=== PATIENT | female | born 1950 | race Caucasian/White ===

== ENCOUNTER 2018-07-05 15:12 | Emergency (ER) | payer OTHER ==
--- OUTSIDE RECORDS SUMMARY | 2018-07-05 15:17 | XMS REPORT ---
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
--- OUTSIDE RECORDS SUMMARY | 2018-07-05 15:17 | XMS REPORT ---
:1950 Author Organization eClinicalWorks Care Team Providers Name Role Phone Judit Russell Provider Role Unavailable Allergies, Adverse Reactions, Alerts Substance Reaction Event Type PCN anaphylaxis Drug Allergy Morphine Sulfate cardiac palpitations Drug Allergy Codeine Phosphate rash Drug Allergy Aspirin nausea and vomiting Drug Allergy Problems Problem Type Condition Code Onset Dates Condition Status Problem Acute UTI N39.0 Active Problem Depression F32.9 Active Problem Hypokalemia E87.6 Active Problem Psychophysiological insomnia F51.04 Active Problem Other osteoporosis without current M81.8 Active pathological fracture Problem Primary insomnia F51.01 Active Problem Vitamin D deficiency E55.9 Active Problem Peripheral neuropathy G62.9 Active Problem Essential hypertension I10 Active Problem Allergic rhinitis J30.9 Active Assessment Primary insomnia F51.01 Active Assessment Depression F32.9 Active Assessment Hordeolum externum of right upper H00.011 Active eyelid Problem 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 Active Assessment Nicotine dependence F17.200 Active Problem Nicotine dependence F17.200 Active Assessment Essential hypertension I10 Active Problem Benign hypertension I10 Active Medications Medication Code Code Instructions Start End Status Dosage System Date Date ProAir HFA [facility] [id number] 108 (90 Base) Jan 13, Active 2 puffs as MCG/ACT 2018 needed Inhalation every 6 hrs Vitamin D3 [facility] 83328477709 2000 UNIT Active 1 capsule Orally Once a day Potassium [facility] 51535289540 20 MEQ Orally Active 1 tablet Chloride ER Once a day with food Trazodone HCl ND 70334312849 50 MG Orally May 03, Active 1 tablet Once a day 2018 at bedtime as needed Lisinopril ND 25276805970 20 MG Orally Apr 05, Active 1 tablet Once a day 2018 Lipitor ND 29721493855 20 MG Orally Active 1 tablet Once a day at bedtime Fluticasone ND 30404605285 50 MCG/ACT Active 1 spray in Propionate Nasally Once a each day nostril Fosamax [facility] [address]-42 35mg Orally Active 1 tablet once a week Zoloft [facility] 19368351275 50 MG Orally Apr 05, Active 1 tablet Once a day 2017 Gabapentin [facility] 99182614414 600 MG Orally Active 1 capsule Four times a day Results No Known Results Summary Purpose eClinicalWorks Submission
--- OUTSIDE RECORDS SUMMARY | 2018-07-05 15:17 | XMS REPORT ---
:1950 Author Organization eClinicalWorks Care Team Providers Name Role Phone YvonneJudit Provider Role Unavailable Allergies No Known Allergies Problems Problem Type Condition Code Onset Dates Condition Status Problem Nicotine dependence F17.200 Active Problem 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 Active Problem Vitamin D deficiency E55.9 Active Problem Peripheral neuropathy G62.9 Active Problem Allergic rhinitis J30.9 Active Problem Acute UTI N39.0 Active Problem Benign hypertension I10 Active Problem Depression F32.9 Active Problem Hypokalemia E87.6 Active Medications No Known Medications Results No Known Results Summary Purpose eClinicalWorks Submission
--- OUTSIDE RECORDS SUMMARY | 2018-07-05 15:17 | XMS REPORT ---
:1950 Author Organization eClinicalWorks Care Team Providers Name Role Phone Judit Russell Provider Role Unavailable Allergies No Known Allergies Problems Problem Type Condition Code Onset Dates Condition Status Assessment Decreased pulses in feet R09.89 Active Problem Nicotine dependence F17.200 Active Problem Alcoholism [...]
--- OUTSIDE RECORDS SUMMARY | 2018-07-05 15:17 | XMS REPORT ---
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 Active Problem Allergic rhinitis J30.9 Active Problem Psychophysiological insomnia F51.04 Active Problem Depression F32.9 Active Problem Hypokalemia E87.6 Active Problem Vitamin D deficiency E55.9 Active Problem Peripheral neuropathy G62.9 Active Assessment Psychophysiological insomnia F51.04 Active Assessment Viral upper respiratory illness J06.9 Active Assessment Bronchitis J40 Active Assessment Nicotine dependence F17.200 Active Medications Medication Code Code Instructions Start End Status Dosage System Date Date ProAir HFA [facility] [id number] 108 (90 Base) Jan 13, Active 2 puffs as MCG/ACT 2018 needed Inhalation every 6 hrs Fluticasone ND 92889584901 50 MCG/ACT Jan 13, Active 1 spray in Propionate Nasally Once a 2018 each day nostril GNP [facility] 26836613391 5-120 MG Orally Jan 13Jan Active 1 tablet Loratadine-D every 12 hrs 2017 07, as needed 12HR 2018 Lipitor ND 72044368669 20 MG Orally October 29, Active 1 tablet Once a day at 2018 bedtime Fosamax [facility] [address]-20 35mg Orally Active 1 tablet once a week Vitamin D3 ND 52770948478 2000 UNIT Active 1 capsule Orally Once a day Zoloft ND 91265628357 25 MG Orally Active 1 tablet Once a day Gabapentin ND 70780462038 600 MG Orally Active 1 capsule Three times a day Fosamax [facility] 08351469328 70 MG Orally October 12, Apr 10, Active 1 tablet once a week 2017 2018 Potassium ND 56941085185 20 MEQ Orally Active 1 tablet Chloride ER Once a day with food Results No Known Results Summary Purpose eClinicalWorks Submission
--- OUTSIDE RECORDS SUMMARY | 2018-07-05 15:17 | XMS REPORT ---
:1950 Author Organization eClinicalWorks Care Team Providers Name Role Phone Judit Russell Provider Role Unavailable Allergies, Adverse Reactions, Alerts Substance Reaction Event Type PCN anaphylaxis Drug Allergy Morphine Sulfate cardiac palpitations Drug Allergy Codeine Phosphate rash Drug Allergy Aspirin nausea and vomiting Drug Allergy Problems Problem Type Condition Code Onset Dates Condition Status Assessment Depression F32.9 Active Problem Nicotine dependence F17.200 Active Problem 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 Active Problem Vitamin D deficiency E55.9 Active Problem Peripheral neuropathy G62.9 Active Problem Allergic rhinitis J30.9 Active Problem Acute UTI N39.0 Active Problem Benign hypertension I10 Active Problem Depression F32.9 Active Problem Hypokalemia E87.6 Active Assessment 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 Active Assessment Vitamin D deficiency E55.9 Active Assessment Peripheral neuropathy G62.9 Active Assessment Decreased pulses in feet R09.89 Active Assessment Nicotine dependence F17.200 Active Medications Medication Code Code Instructions Start End Status Dosage System Date Date Potassium [facility] 79214890082 20 MEQ Orally Active 1 tablet Chloride ER Once a day with food Fosamax [facility] [address]-42 35mg Orally Active 1 tablet once a week Zoloft ND 10752619842 25 MG Orally Active 1 tablet Once a day Vitamin D3 [facility] 44371603313 2000 UNIT Active 1 capsule Orally Once a day Tramadol HCl ND 40312511831 50 MG Orally Active 1 tablet BID prn pain as needed Fosamax [facility] 31605604078 70 MG Orally October 12, Apr 10, Active 1 tablet once a week 2017 2017 Gabapentin ND 47236938550 600 MG Orally Active 1 capsule Three times a day Results No Known Results Summary Purpose eClinicalWorks Submission
--- NOTE | 2018-07-05 16:53 | RAD REPORT ---
EXAM DESCRIPTION: RAD - Hip Right 2 View - 07/05/2018 4:31 pm CLINICAL HISTORY: Hip pain following slip and fall COMPARISON: None. FINDINGS: AP and frog-leg views of the right hip were obtained. There is no fracture or dislocation . No AVN or focal femoral head abnormality. Hip joint degenerative changes are minimal. No periartic ular mass, hematoma or other soft tissue abnormality. IMPRESSION: Negative right hip examination for acute findings.
--- NOTE | 2018-07-05 16:53 | RAD REPORT ---
EXAM DESCRIPTION: RAD - Pelvis - 07/05/2018 4:31 pm CLINICAL HISTORY: Slip and fall, pelvis and right hip pain COMPARISON: August 2016 TECHNIQUE: AP imaging of the pelvis was obtained. FINDINGS: Lower lumbar degenerative changes present only partially imaged. No clear interval change. Minimal SI joint degenerative change present. No fracture of the bony pelvis seen. No fracture or di slocation of either proximal femur. Hip joint degenerative changes are present stable from 2017. IMPRESSION: No fracture or acute pelvis finding.
--- NOTE | 2018-07-05 16:54 | RAD REPORT ---
EXAM DESCRIPTION: RAD - Femur Right - 07/05/2018 4:32 pm CLINICAL HISTORY: Slip and fall, right hip and leg pain COMPARISON: None. FINDINGS: No fracture, dislocation or periosteal reaction noted. No acute or suspicious bony finding . Prominent meniscal degenerative changes are present. No large joint effusion seen. No air or foreig n body in the soft tissues. IMPRESSION: Knee joint degenerative changes are present. No fracture or acute right femur finding.
--- NOTE | 2018-07-05 16:56 | RAD REPORT ---
EXAM DESCRIPTION: RAD - Foot Left 3 View - 07/05/2018 4:31 pm CLINICAL HISTORY: Slip and fall, left second toe pain COMPARISON: November 2015 FINDINGS: An oblique fracture is present through the distal aspect of the second proximal phalanx. T his does not extend to the articular surface. No significant distraction or angulation deformity. No other fracture changes are identifiable. Moderate degenerative changes are present at the medial c uneiform first metatarsal articulation. This is not substantially different from comparison. Tibiotal ar joint space degenerative change present only partially imaged on a foot examination. No air or foreign body in the soft tissues. IMPRESSION: Oblique fracture through the second proximal phalanx without significant distraction or angulation deformity. Foot and ankle degenerative changes are present not substantially different from comparison.
--- NOTE | 2018-07-05 17:48 | ER ---
Nurse's Notes [facility] Name: Nusrat Green Age: 68 yrs Sex: Female : 1950 Arrival Date: 07/05/2018 Time: 15:17 Bed 9 Private MD: DESI LOZOYA Diagnosis: Contusion of right hip;Nondisplaced fracture of proximal phalanx of left lesser toe(s) Presentation: 07/05 15:19 Presenting complaint: Right hip and left second toe pain after slipping on steps 3 days hb ago. Transition of care: patient was not received from another setting of care. Onset of symptoms was July 02, 2018. Risk Assessment: Do you want to hurt yourself or someone else? Patient reports no desire to harm self or others. Initial Sepsis Screen: Does the patient meet any 2 criteria? No. Patient's initial sepsis screen is negative. Does the patient have a suspected source of infection? No. Patient's initial sepsis screen is negative. Care prior to arrival: None. 15:19 Method Of Arrival: Ambulatory hb 15:19 Acuity: ROSALIE 4 hb Historical: - Allergies: 15:22 Aspirin; hb 15:22 Morphine; hb 15:22 PENICILLINS; hb 15:22 Codeine; hb - Home Meds: 15:22 gabapentin Oral [Active]; Zoloft Oral [Active]; hb - PMHx: 15:22 Hypertension; hb - Immunization history:: Adult Immunizations up to date. - Social history:: Smoking status: Patient uses tobacco products, smokes one-half pack cigarettes per day. - Ebola Screening: : No symptoms or risks identified at this time. - Family history:: not pertinent. - Hospitalizations: : No recent hospitalization is reported. Screenin:36 Abuse screen: Denies threats or abuse. Denies injuries from another. Nutritional aj screening: No deficits noted. Tuberculosis screening: No symptoms or risk factors identified. Fall Risk None identified. Assessment: 15:36 General: Appears in no apparent distress. comfortable, Behavior is calm, cooperative, aj appropriate for age. Pain: Complains of pain in right hip and left second toe. Neuro: Level of Consciousness is awake, alert, obeys commands, Oriented to person, place, time, situation, Appropriate for age. Respiratory: Airway is patent Respiratory effort is even, unlabored, Respiratory pattern is regular, symmetrical. Derm: Skin is intact, is healthy with good turgor, Skin is pink, warm \T\ dry. normal. Musculoskeletal: Circulation, motion, and sensation intact. Range of motion: intact in all extremities, Reports pain in right hip and left second toe. 16:00 Reassessment: Patient stated that she was uncomfortable in stretcher. Provided with recliner for comfort. 18:00 Reassessment: Patient appears in no apparent distress at this time. No changes from previously documented assessment. Patient and/or family updated on plan of care and expected duration. Pain level reassessed. Patient is alert, oriented x 3, equal unlabored respirations, skin warm/dry/pink. Vital Signs: 15:20 BP 163 / 82; Pulse 84; Resp 18; Temp 98.5; Pulse Ox 100% on R/A; Pain 8/10; hb ED Course: 15:17 Patient arrived in ED. sb2 15:17 DESI LOZOYA is Private Physician. sb2 15:20 Triage completed. hb 15:22 Arm band placed on. hb 15:24 Faith Lopez, RN is Primary Nurse. aj 15:30 Anderson Pena MD is Attending Physician. rn 15:36 Patient has correct armband on for positive identification. aj 16:32 XRAY Foot LEFT 3 View In Process Unspecified. EDMS 16:32 XRAY Hip RIGHT 2 view In Process Unspecified. EDMS 16:32 XRAY Pelvis In Process Unspecified. EDMS 16:32 XRAY Femur RIGHT In Process Unspecified. EDMS 18:00 No provider procedures requiring assistance completed. Patient did not have IV access aj during this emergency room visit. Ortho shoe applied to left foot. Administered Medications: No medications were administered Outcome: 17:47 Discharge ordered by . rn 18:00 Discharged to home ambulatory. aj 18:00 Condition: good 18:00 Discharge instructions given to patient, Instructed on discharge instructions, follow up and referral plans. Demonstrated understanding of instructions, follow-up care. 18:02 Patient left the ED. oleg Signatures: Dispatcher [employer] EDFaith Rg, Anderson Chappell RN, MD MD rn Baxter, Heather, RN RN Cherelle Crisostomo sb2
--- NOTE | 2018-07-05 17:48 | EDPHYS ---
Physician Documentation [facility] Name: Nusrat Green Age: 68 yrs Sex: Female : 1950 Arrival Date: 07/05/2018 Time: 15:17 Bed 9 Private MD: DESI LOZOYA ED Physician Anderson Pena HPI: 07/05 15:36 This 68 yrs old Female presents to ER via Ambulatory with complaints of Fall rn Injury, Hip Injury, Toe Injury. 15:36 Details of fall: The patient fell from a height, down approximately 2 stairs. Onset: rn The symptoms/episode began/occurred 3 day(s) ago. Associated injuries: The patient sustained right hip, left 2nd toe. Severity of symptoms: At their worst the symptoms were mild, in the emergency department the symptoms are unchanged. The patient has not experienced similar symptoms in the past. The patient has not recently seen a physician. Reports fell 3 days ago, from 2nd step out of 3 into RV floor, no LOC, reports ambulatory but right hip and left 2nd toe hurt.. Historical: - Allergies: 15:22 Aspirin; hb 15:22 Morphine; hb 15:22 PENICILLINS; hb 15:22 Codeine; hb - Home Meds: 15:22 gabapentin Oral [Active]; Zoloft Oral [Active]; hb - PMHx: 15:22 Hypertension; hb - Immunization history:: Adult Immunizations up to date. - Social history:: Smoking status: Patient uses tobacco products, smokes one-half pack cigarettes per day. - Ebola Screening: : No symptoms or risks identified at this time. - Family history:: not pertinent. - Hospitalizations: : No recent hospitalization is reported. ROS: 15:36 Constitutional: Negative for fever, chills, and weight loss, Eyes: Negative for injury, rn pain, redness, and discharge, Neck: Negative for injury, pain, and swelling, Cardiovascular: Negative for chest pain, palpitations, and edema, Respiratory: Negative for shortness of breath, cough, wheezing, and pleuritic chest pain, Abdomen/GI: Negative for abdominal pain, nausea, vomiting, diarrhea, and constipation, MS/Extremity: + right hip and left 2nd toe injury Skin: Negative for injury, rash, and discoloration, Neuro: Negative for headache, weakness, numbness, tingling, and seizure. Exam: 15:36 Constitutional: This is a well developed, well nourished patient who is awake, alert, rn and in no acute distress. Head/Face: Normocephalic, atraumatic. Abdomen/GI: soft, non-tender Skin: Warm, dry with normal turgor. Normal color with no rashes, no lesions, and no evidence of cellulitis. MS/ Extremity: Pulses equal, no cyanosis. + painful ROM right hip and left 2nd toe with mild swelling, no deformity. Neuro: Awake and alert, GCS 15, oriented to person, place, time, and situation. Cranial nerves II-XII grossly intact. Motor strength 5/5 in all extremities. Sensory grossly intact. Vital Signs: 15:20 BP 163 / 82; Pulse 84; Resp 18; Temp 98.5; Pulse Ox 100% on R/A; Pain 8/10; hb MDM: 15:30 Patient medically screened. rn 16:58 Differential diagnosis: contusion, fracture, sprain, strain. Data reviewed: vital rn signs, nurses notes, lab test result(s), radiologic studies, plain films, and as a result, I will discharge patient. Counseling: I had a detailed discussion with the patient and/or guardian regarding: the historical points, exam findings, and any diagnostic results supporting the discharge/admit diagnosis, radiology results, the need for outpatient follow up, to return to the emergency department if symptoms worsen or persist or if there are any questions or concerns that arise at home. Special discussion: I discussed with the patient/guardian in detail that at this point there is no indication for admission to the hospital. It is understood, however, that if the symptoms persist or worsen the patient needs to return immediately for re-evaluation. 07/05 15:35 Order name: XRAY Foot LEFT 3 View; Complete Time: 16:58 rn 07/05 15:35 Order name: XRAY Hip RIGHT 2 view; Complete Time: 16:58 rn 07/05 15:35 Order name: XRAY Pelvis; Complete Time: 16:58 rn 07/05 15:35 Order name: XRAY Femur RIGHT; Complete Time: 16:58 rn Administered Medications: No medications were administered Disposition: 07/05/18 17:47 Discharged to Home. Impression: Contusion of right hip, Nondisplaced fracture of proximal phalanx of left lesser toe(s). - Condition is Stable. - Discharge Instructions: Contusion, Toe Fracture. - Prescriptions for Tramadol 50 mg Oral Tablet - take 1 tablet by ORAL route every 8 hours as needed; 20 tablet. - Medication Reconciliation Form, Thank You Letter, Antibiotic Education, Prescription Opioid Use form. - Follow up: Private Physician; When: As needed; Reason: Recheck today's complaints, Re-evaluation by your physician. - Problem is new. - Symptoms have improved. Signatures: Dispatcher [employer] EDFaith Rg RN RN aj Nieto, Roman, MD MD rn Baxter, Heather, RN RN Corrections: (The following items were deleted from the chart) 18:02 17:47 07/05/2018 17:47 Discharged to Home. Impression: Contusion of right hip; aj Nondisplaced fracture of proximal phalanx of left lesser toe(s). Condition is Stable. Forms are Medication Reconciliation Form, Thank You Letter, Antibiotic Education, Prescription Opioid Use. Follow up: Private Physician; When: As needed; Reason: Recheck today's complaints, Re-evaluation by your physician. Problem is new. Symptoms have improved. rn
== END 2018-07-05 18:02 | disposition home or self-care (01) ==
LOC: ER 15:12
DX: S70.01XA Contusion of right hip, initial encounter (principal); S92.512A Displaced fracture of proximal phalanx of left lesser toe(s), initial encounter for closed fracture; W10.9XXA Fall (on) (from) unspecified stairs and steps, initial encounter; I10 Essential (primary) hypertension; Z88.6 Allergy status to analgesic agent; Z88.5 Allergy status to narcotic agent; Z88.0 Allergy status to penicillin
CPT/HCPCS: 72170; 99283

== ENCOUNTER 2018-12-07 11:40 | Emergency (ER) | payer OTHER ==
--- OUTSIDE RECORDS SUMMARY | 2018-12-07 11:47 | XMS REPORT ---
[...] Status Dosage System Date Date ProAir HFA [facility] [id number] 108 (90 Base) Jan 13, Active 2 puffs as MCG/ACT 2018 needed Inhalation every 6 hrs Fluticasone ND 15756980382 50 MCG/ACT Jan 13, Active 1 spray in Propionate Nasally Once a 2018 each day nostril GNP [facility] 35949173518 5-120 MG Orally Jan 13Jan Active 1 tablet Loratadine-D every 12 hrs 2017 07, as needed 12HR 2018 Lipitor ND 43510777680 20 MG Orally October 29, Active 1 tablet Once a day at 2018 bedtime Fosamax [facility] [address]-78 35mg Orally Active 1 tablet once a week Vitamin D3 ND 93366361372 2000 UNIT Active 1 capsule Orally Once a day Zoloft ND 39055003868 25 MG Orally Active 1 tablet Once a day Gabapentin ND 85034465097 600 MG Orally Active 1 capsule Three times a day Fosamax [facility] 07658171608 70 MG Orally October 12, Apr 10, Active 1 tablet once a week 2017 2018 Potassium ND 81447228193 20 MEQ Orally Active 1 tablet Chloride ER Once a day with food Results No Known Results Summary Purpose eClinicalWorks Submission
--- OUTSIDE RECORDS SUMMARY | 2018-12-07 11:47 | XMS REPORT ---
[...] Status Dosage System Date Date ProAir HFA [facility] [id number] 108 (90 Base) Jan 13, Active 2 puffs as MCG/ACT 2018 needed Inhalation every 6 hrs Vitamin D3 [facility] 35641927491 2000 UNIT Active 1 capsule Orally Once a day Potassium [facility] 80738428242 20 MEQ Orally Active 1 tablet Chloride ER Once a day with food Trazodone HCl ND 27775235591 50 MG Orally May 03, Active 1 tablet Once a day 2018 at bedtime as needed Lisinopril ND 56876666696 20 MG Orally Apr 05, Active 1 tablet Once a day 2018 Lipitor ND 97741893987 20 MG Orally Active 1 tablet Once a day at bedtime Fluticasone ND 31382630847 50 MCG/ACT Active 1 spray in Propionate Nasally Once a each day nostril Fosamax [facility] [address]-14 35mg Orally Active 1 tablet once a week Zoloft [facility] 72311207745 50 MG Orally Apr 05, Active 1 tablet Once a day 2017 Gabapentin [facility] 97485056804 600 MG Orally Active 1 capsule Four times a day Results No Known Results Summary Purpose eClinicalWorks Submission
--- OUTSIDE RECORDS SUMMARY | 2018-12-07 11:48 | XMS REPORT ---
:1950 Author Organization eClinicalWorks Care Team Providers Name Role Phone Venecia Russelly Provider Role Unavailable Allergies, Adverse Reactions, Alerts Substance Reaction Event Type PCN anaphylaxis Drug Allergy Morphine Sulfate cardiac palpitations Drug Allergy Codeine Phosphate rash Drug Allergy Aspirin nausea and vomiting Drug Allergy Problems Problem Type Condition Code Onset Dates Condition Status Problem Vitamin D deficiency E55.9 Active Problem Allergic rhinitis J30.9 Active Problem Nicotine dependence F17.200 Active Problem Closed nondisplaced fracture of S92.535A Active distal phalanx of lesser toe of left foot, initial encounter Assessment Nicotine dependence F17.200 Active Problem Anxiety F41.9 Active Problem Seasonal allergic rhinitis due to J30.1 Active pollen Problem Other osteoporosis without current M81.8 Active pathological fracture Problem Essential hypertension I10 Active Problem Primary insomnia F51.01 Active Problem Psychophysiological insomnia F51.04 Active Assessment Primary insomnia F51.01 Active Assessment Seasonal allergic rhinitis due to J30.1 Active pollen Assessment Closed nondisplaced fracture of S92.535A Active distal phalanx of lesser toe of left foot, initial encounter Problem Acute UTI N39.0 Active Problem Hypokalemia E87.6 Active Problem 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 Active Problem Depression F32.9 Active Problem Benign hypertension I10 Active Problem Peripheral neuropathy G62.9 Active Medications Medication Code Code Instructions Start End Status Dosage System Date Date Zoloft [facility] 40020102272 50 MG Orally Apr 05, Active 1 tablet Once a day 2017 Fosamax [facility] [address]-17 35mg Orally Active 1 tablet once a week Trazodone HCl ND 22561712774 100 MG Orally Jun 03, Active 1 tablet Once a day 2019 at bedtime Lisinopril ND 16509413761 20 MG Orally Apr 05, Active 1 tablet Twice a day 2018 Vitamin D3 [facility] 49031023308 2000 UNIT Active 1 capsule Orally Once a day Potassium [facility] 48494866903 20 MEQ Orally Active 1 tablet Chloride ER Once a day with food ProAir HFA [facility] 37799689266 108 (90 Base) Jan 13, Active 2 puffs as MCG/ACT 2017 needed Inhalation every 6 hrs BusPIRone HCl [facility] 96821468858 5 MG Orally Jun 03, Active 1 tablet Twice a day 2018 Gabapentin [facility] 98528240002 600 MG Orally Active 1 capsule Four times a day Trazodone HCl [facility] 07181288136 50 MG Orally Active 1 tablet Once a day at bedtime as needed Lipitor [facility] 36604205241 20 MG Orally Active 1 tablet Once a day at bedtime Fluticasone [facility] 66688478618 50 MCG/ACT Active 1 spray in Propionate Nasally Once a each day nostril Results No Known Results Summary Purpose eClinicalWorks Submission
--- OUTSIDE RECORDS SUMMARY | 2018-12-07 11:48 | XMS REPORT ---
[...] toe of left foot, initial encounter Problem Anxiety F41.9 Active Problem Seasonal allergic rhinitis due to J30.1 Active pollen Problem Other osteoporosis without current M81.8 Active pathological fracture Problem Essential hypertension I10 Active Problem Primary insomnia F51.01 Active Problem Psychophysiological insomnia F51.04 Active Problem Acute UTI N39.0 Active Problem Hypokalemia E87.6 Active Problem 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 Active Problem Depression F32.9 Active Problem Benign hypertension I10 Active Problem Peripheral neuropathy G62.9 Active Medications No Known Medications Results No Known Results Summary Purpose eClinicalWorks Submission
--- OUTSIDE RECORDS SUMMARY | 2018-12-07 11:48 | XMS REPORT ---
:1950 Author Organization eClinicalWorks Care Team Providers Name Role Phone Judit Russell Provider Role Unavailable Allergies, Adverse Reactions, Alerts Substance Reaction Event Type PCN anaphylaxis Drug Allergy Morphine Sulfate cardiac palpitations Drug Allergy Codeine Phosphate rash Drug Allergy Aspirin nausea and vomiting Drug Allergy Problems Problem Type Condition Code Onset Dates Condition Status Problem Depression F32.9 Active Problem Vitamin D deficiency E55.9 Active Problem Peripheral neuropathy G62.9 Active Problem Primary insomnia F51.01 Active Problem Psychophysiological insomnia F51.04 Active Problem Anxiety F41.9 Active Problem Allergic rhinitis J30.9 Active Problem Nicotine dependence F17.200 Active Problem Other osteoporosis without current M81.8 Active pathological fracture Problem Essential hypertension I10 Active Assessment Anxiety F41.9 Active Assessment Primary insomnia F51.01 Active Problem 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 Active Problem Benign hypertension I10 Active Assessment Benign hypertension I10 Active Problem Acute UTI N39.0 Active Problem Hypokalemia E87.6 Active Medications Medication Code Code Instructions Start End Status Dosage System Date Lipitor [facility] 64655096794 20 MG Orally Active 1 tablet Once a day at bedtime Gabapentin ND 40174799339 600 MG Orally Active 1 capsule Four times a day Zoloft ND 08247053462 50 MG Orally Apr 05, Active 1 tablet Once a day 2017 Fluticasone [facility] 87264135420 50 MCG/ACT Active 1 spray in Propionate Nasally Once a each day nostril Lisinopril ND 19067220319 20 MG Orally Apr 05, Active 1 tablet Twice a day 2017 BusPIRone HCl ND 35321953326 5 MG Orally Jun 03, Active 1 tablet Twice a day 2018 Vitamin D3 [facility] 08527482317 2000 UNIT Active 1 capsule Orally Once a day Potassium ND 62167749622 20 MEQ Orally Active 1 tablet Chloride ER Once a day with food Trazodone HCl [facility] 61686600308 50 MG Orally Active 1 tablet Once a day at bedtime as needed Fosamax [facility] [address]-20 35mg Orally Active 1 tablet once a week Trazodone HCl [facility] 13612449880 100 MG Orally Jun 03, Active 1 tablet Once a day 2019 at bedtime ProAir HFA [facility] 70702172173 108 (90 Base) Jan 13, Active 2 puffs as MCG/ACT 2017 needed Inhalation every 6 hrs Results No Known Results Summary Purpose eClinicalWorks Submission
--- OUTSIDE RECORDS SUMMARY | 2018-12-07 11:48 | XMS REPORT ---
:1950 Author Organization eClinicalWorks Care Team Providers Name Role Phone Judit Russell Provider Role Unavailable Allergies No Known Allergies Problems Problem Type Condition Code Onset Dates Condition Status Problem Vitamin D deficiency E55.9 Active Problem 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 Active Problem Nicotine dependence F17.200 Active Problem Pulmonary emphysema, unspecified J43.9 Active emphysema type Problem Seasonal allergic rhinitis due to J30.1 Active pollen Problem Benign hypertension I10 Active Problem Other osteoporosis without current M81.8 Active pathological fracture Problem Essential hypertension I10 Active Problem Anxiety F41.9 Active Problem Primary insomnia F51.01 Active Problem Hypoxia R09.02 Active Problem Hypokalemia E87.6 Active Problem Depression F32.9 Active Problem Low oxygen saturation R79.81 Active Problem Peripheral neuropathy G62.9 Active Medications No Known Medications Results No Known Results Summary Purpose [employer] Submission
--- OUTSIDE RECORDS SUMMARY | 2018-12-07 11:48 | XMS REPORT ---
[...] Peripheral neuropathy G62.9 Active Medications Medication Code System Code Instructions Start Date End Date Status Dosage Lisinopril [facility] 68337273911 20 MG Orally bid Active 1 tablet Results No Known Results Summary Purpose eClinicalWorks Submission
--- OUTSIDE RECORDS SUMMARY | 2018-12-07 11:48 | XMS REPORT ---
:1950 Author Organization eClinicalWorks Care Team Providers Name Role Phone Yvonne Judit Provider Role Unavailable Allergies, Adverse Reactions, Alerts Substance Reaction Event Type PCN anaphylaxis Drug Allergy Morphine Sulfate cardiac palpitations Drug Allergy Codeine Phosphate rash Drug Allergy Aspirin nausea and vomiting Drug Allergy Problems Problem Type Condition Code Onset Dates Condition Status Problem Nicotine dependence F17.200 Active Problem Essential hypertension I10 Active Problem 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 Active Problem Benign hypertension I10 Active Problem Pulmonary emphysema, unspecified J43.9 Active emphysema type Problem Age-related osteoporosis without M81.0 Active current pathological fracture Problem Primary insomnia F51.01 Active Problem Other osteoporosis without current M81.8 Active pathological fracture Problem Seasonal allergic rhinitis due to J30.1 Active pollen Problem Anxiety F41.9 Active Assessment Pulmonary emphysema, unspecified J43.9 Active emphysema type Problem Hypokalemia E87.6 Active Problem Depression F32.9 Active Problem Low oxygen saturation R79.81 Active Problem Peripheral neuropathy G62.9 Active Problem Hypoxia R09.02 Active Problem Vitamin D deficiency E55.9 Active Medications Medication Code Code Instructions Start End Status Dosage System Date Date Trazodone HCl [facility] 87837510851 100 MG Orally Active 1 tablet at Once a day bedtime Trazodone HCl [facility] 65545464090 50 MG Orally Active 1 tablet at Once a day bedtime as needed Oxygen NDC 0 n/s nasal Active continous concentrator cannula 3l, N/C continous Zoloft ND 89500924517 50 MG Orally Active 1 tablet Once a day Fluticasone ND 13351349574 50 MCG/ACT Active 1 spray in Propionate Nasally Once a each day nostril BusPIRone HCl ND 01590619506 5 MG Orally Jun 03, Active 1 tablet Twice a day 2018 Potassium ND 34551201771 20 MEQ Orally Active 1 tablet Chloride ER Once a day with food Gabapentin ND 30152606473 600 MG Active TAKE 1 CAPSULE BY MOUTH 4 TIMES A DAY Lisinopril ND 92020967790 20 MG Orally Active 1 tablet bid Lipitor [facility] 83434138508 20 MG Orally Active 1 tablet Once a day at bedtime Vitamin D3 [facility] 29235024408 2000 UNIT Active 1 capsule Orally Once a day ProAir HFA [facility] 83959147819 108 (90 Base) Jan 13, Active 2 puffs as MCG/ACT 2017 needed Inhalation every 6 hrs Fosamax [facility] [address]-30 35mg Orally Active 1 tablet once a week Results No Known Results Summary Purpose eClinicalWorks Submission
[2018-12-07] MEDS ORDERED: dexAMETHasone 10 MG/ML VIAL ONE (13:08)
[2018-12-07] MEDS ORDERED: FENTANYL CITR 100 MCG/2 ML ONE (13:09)
[2018-12-07] MEDS ORDERED: LEVALBUTEROL 0.63 MG/3 ML NEB ONE (13:09)
--- NOTE | 2018-12-07 14:01 | ER ---
Nurse's Notes [facility] Name: Nusrat Green Age: 68 yrs Sex: Female : 1950 Arrival Date: 12/07/2018 Time: 11:42 Bed 17 Private MD: Diagnosis: Sciatica, left side Presentation: 12/07 11:43 Presenting complaint: Patient states: joe been having this pain on my lower back and L hj shoulder, i was diagnosed with degenerative disc dse; denies fall;. Transition of care: patient was not received from another setting of care. Onset of symptoms was December 07, 2018. Risk Assessment: Do you want to hurt yourself or someone else? Patient reports no desire to harm self or others. Initial Sepsis Screen: Does the patient meet any 2 criteria? No. Patient's initial sepsis screen is negative. Does the patient have a suspected source of infection? No. Patient's initial sepsis screen is negative. Care prior to arrival: None. 11:43 Method Of Arrival: Ambulatory 11:43 Acuity: ROSALIE 4 hj Historical: - Allergies: 11:45 Aspirin; hj 11:45 Codeine; hj 11:45 Morphine; hj 11:45 PENICILLINS; hj 13:00 Ciprofloxacin; tw2 13:00 diazepam; tw2 - Home Meds: 13:00 gabapentin Oral [Active]; Zoloft Oral [Active]; tw2 - PMHx: 11:45 Hypertension; hj - PSHx: 11:45 None; hj - Immunization history:: Adult Immunizations. - Social history:: Smoking status: . - Ebola Screening: : Patient denies travel to an Ebola-affected area in the 21 days before illness onset. Screenin:11 Abuse screen: Denies threats or abuse. Nutritional screening: No deficits noted. tw2 Tuberculosis screening: No symptoms or risk factors identified. Fall Risk Secondary diagnosis (15 points) impaired mobility. Assessment: 13:31 Reassessment: Patient ambulated with steady gait around pod 2, required no assistance. aj General: Appears in no apparent distress. comfortable, Behavior is calm, cooperative, appropriate for age. Pain: Complains of pain in left lower back, left gluteus mariluz and left gluteal fold. Neuro: Level of Consciousness is awake, alert, obeys commands, Oriented to person, place, time, situation, Appropriate for age. Respiratory: Airway is patent Respiratory effort is even, unlabored, Respiratory pattern is regular, symmetrical. Derm: Skin is intact, is healthy with good turgor, Skin is pink, warm \T\ dry. normal. Musculoskeletal: Reports pain in left lower back, left gluteus mariluz and left gluteal fold. Vital Signs: 11:45 BP 149 / 81; Pulse 73; Resp 18; Temp 97.7(TE); Pulse Ox 97% on R/A; Weight 77.56 kg; hj Height 5 ft. 7 in. (170.18 cm); Pain 10/10; 11:45 Body Mass Index 26.78 (77.56 kg, 170.18 cm) hj ED Course: 11:42 Patient arrived in ED. as 11:44 Triage completed. hj 11:45 Arm band placed on left wrist. hj 12:11 Martha Florian RN is Primary Nurse. tw2 12:13 Bed in low position. Call light in reach. Pulse ox on. NIBP on. tw2 12:28 Merrick Lepe PA is PHCP. [facility] 12:28 Anderson Pena MD is Attending Physician. [facility] 13:31 No provider procedures requiring assistance completed. aj 14:07 Patient did not have IV access during this emergency room visit. aj Administered Medications: 12:58 Drug: Xopenex (3) 1.25 mg Route: Inhalation; aj 13:40 Follow up: Response: No adverse reaction; Marked relief of symptoms aj 12:58 Drug: Decadron 10 mg Route: IM; Site: left gluteus; aj 13:40 Follow up: Response: No adverse reaction aj 12:58 Drug: fentaNYL (PF) 25 mcg Route: IM; Site: right gluteus; aj 13:40 Follow up: Response: Pain is decreased aj Outcome: 13:59 Discharge ordered by . servando 14:07 Discharged to home ambulatory. aj 14:07 Condition: good 14:07 Discharge instructions given to patient, Instructed on discharge instructions, follow up and referral plans. medication usage, Demonstrated understanding of instructions, follow-up care, medications, Prescriptions given X 2. 14:08 Patient left the ED. aj Signatures: Faith Lopez RN Merrick Tripathi PA PA jmm Martinez, Amelia as Joaquin, Henry, RN RN Martha Florian RN RN tw2 Corrections: (The following items were deleted from the chart) 11:46 11:45 Pulse 73bpm; Resp 18bpm; Pulse Ox 97% RA; Temp 97.7F Temporal; 77.56 kg; Height 5 hj ft. 7 in.; BMI: 26.7; Pain 03/02; hj
--- NOTE | 2018-12-07 14:01 | EDPHYS ---
Physician Documentation [facility] Name: Nusrat Green Age: 68 yrs Sex: Female : 1950 Arrival Date: 12/07/2018 Time: 11:42 Bed 17 Private MD: ED Physician Anderson Pena HPI: 12/07 12:39 This 68 yrs old Female presents to ER via Ambulatory with complaints of Back jmm Pain. 12:39 The patient presents with pain that is chronic, with no known mechanism of injury. jmm Onset: The symptoms/episode began/occurred gradually, 1 month(s) ago. The pain radiates to the left leg. Associated signs and symptoms: Pertinent negatives: abdominal pain, chest pain, constipation, dysuria, fever, headache, hematuria, incontinence, nausea, numbness, tingling, urinary retention, vomiting, weakness. Modifying factors: The patient symptoms are alleviated by rest, the patient symptoms are aggravated by movement. This is a 68 year old female with a history of htn that presents to the ED with complaints of left sided back pain which radiates down her left leg. Patient states she has had similar episodes on the past. Patient denies urinary or bowel issues. Denies leg weakness. . Historical: - Allergies: 11:45 Aspirin; hj 11:45 Codeine; hj 11:45 Morphine; hj 11:45 PENICILLINS; hj 13:00 Ciprofloxacin; tw2 13:00 diazepam; tw2 - Home Meds: 13:00 gabapentin Oral [Active]; Zoloft Oral [Active]; tw2 - PMHx: 11:45 Hypertension; hj - PSHx: 11:45 None; hj - Immunization history:: Adult Immunizations. - Social history:: Smoking status: . - Ebola Screening: : Patient denies travel to an Ebola-affected area in the 21 days before illness onset. ROS: 12:39 Constitutional: Negative for fever, chills, and weight loss, Cardiovascular: Negative jmm for chest pain, palpitations, and edema, Respiratory: Negative for shortness of breath, cough, wheezing, and pleuritic chest pain, Abdomen/GI: Negative for abdominal pain, nausea, vomiting, diarrhea, and constipation. 12:39 Back: Positive for pain with movement. 12:39 MS/extremity: Positive for pain. 12:39 All other systems are negative. Exam: 12:39 Constitutional: This is a well developed, well nourished patient who is awake, alert, jmm and in no acute distress. Head/Face: atraumatic. Eyes: EOMI, no conjunctival erythema appreciated ENT: Moist Mucus Membranes Neck: Trachea midline, Supple Chest/axilla: Normal chest wall appearance and motion. Cardiovascular: Regular rate and rhythm. No edema appreciated Respiratory: Normal respirations, no respiratory distress appreciated Abdomen/GI: Non distended, soft 12:39 Back: left paraspinal pain on palpation, muscle spasm noted. 12:39 Musculoskeletal/extremity: ROM: intact in all extremities. 12:39 Neuro: extensor hallucis longus intact, normal gait. 12:39 Psych: Behavior/mood is pleasant, cooperative. Vital Signs: 11:45 BP 149 / 81; Pulse 73; Resp 18; Temp 97.7(TE); Pulse Ox 97% on R/A; Weight 77.56 kg; hj Height 5 ft. 7 in. (170.18 cm); Pain 10/10; 11:45 Body Mass Index 26.78 (77.56 kg, 170.18 cm) hj MDM: 12:39 Patient medically screened. [facility] 13:59 Data reviewed: vital signs, nurses notes. [facility] 13:59 Counseling: I had a detailed discussion with the patient and/or guardian regarding: the [facility] historical points, exam findings, and any diagnostic results supporting the discharge/admit diagnosis, the need for outpatient follow up, to return to the emergency department if symptoms worsen or persist or if there are any questions or concerns that arise at home. 13:59 ED course: Pain is decreased in the ED. I do not suspect cord compression. Neuro jmm intact. Patient advised to follow up with pcp and otherwise given strict return precautions. Patient understood and agrees with the plan of care. . 12/07 12:47 Order name: O2 Per Protocol; Complete Time: 12:55 [facility] Administered Medications: 12:58 Drug: Xopenex (3) 1.25 mg Route: Inhalation; aj 13:40 Follow up: Response: No adverse reaction; Marked relief of symptoms aj 12:58 Drug: Decadron 10 mg Route: IM; Site: left gluteus; aj 13:40 Follow up: Response: No adverse reaction aj 12:58 Drug: fentaNYL (PF) 25 mcg Route: IM; Site: right gluteus; aj 13:40 Follow up: Response: Pain is decreased aj Disposition: 15:59 Co-signature as Attending Physician, Anderson Pena MD. rn Disposition: 12/07/18 13:59 Discharged to Home. Impression: Sciatica, left side. - Condition is Stable. - Discharge Instructions: Sciatica. - Prescriptions for Ultracet 37.5- 325 mg Oral Tablet - take 1 tablet by ORAL route every 6 hours - for up to 5 days; do not exceed 8 tablets per day.; 20 tablet. orphenadrine citrate 100 mg Oral Tablet Sustained Release - take 1 tablet by ORAL route 2 times per day As needed; 20 tablet. - Medication Reconciliation Form, Thank You Letter, Antibiotic Education, Prescription Opioid Use form. - Follow up: Private Physician; When: 2 - 3 days; Reason: Recheck today's complaints, Continuance of care, Re-evaluation by your physician. Signatures: Faith Lopez RN RN aj Mickail, Joel, PA PA jmm Nieto, Roman, MD MD rn Joaquin, Henry, RN RN Martha Florian RN RN tw2 Corrections: (The following items were deleted from the chart) 13:59 13:59 Counseling: I had a detailed discussion with the patient and/or guardian servando regarding: the historical points, exam findings, and any diagnostic results supporting the discharge/admit diagnosis, radiology results, the need for outpatient follow up, to return to the emergency department if symptoms worsen or persist or if there are any questions or concerns that arise at home, servando 14:08 13:59 12/07/2018 13:59 Discharged to Home. Impression: Sciatica, left side. Condition aj is Stable. Forms are Medication Reconciliation Form, Thank You Letter, Antibiotic Education, Prescription Opioid Use. Follow up: Private Physician; When: 2 - 3 days; Reason: Recheck today's complaints, Continuance of care, Re-evaluation by your physician. servando
== END 2018-12-07 14:08 | disposition home or self-care (01) ==
LOC: ER 11:40
DX: M54.32 Sciatica, left side (principal); I10 Essential (primary) hypertension; Z88.6 Allergy status to analgesic agent; Z88.1 Allergy status to other antibiotic agents; Z88.0 Allergy status to penicillin; Z88.5 Allergy status to narcotic agent
CPT/HCPCS: J3010; J1100